=== PATIENT | male | born 1965 | race Caucasian/White ===

== ENCOUNTER 2016-12-26 10:57 | Emergency (ER) | payer OTHER ==
[2016-12-26 11:00] VITALS: BP 131/87; PULSE 56; RESP 16; TEMP 98.1; O2SAT 97
[2016-12-26] MEDS ORDERED: FLUORESCEIN SODIUM 1 MG STRIP OP ONE (11:20)
[2016-12-26] MEDS ORDERED: PROPARACAINE 0.5% 15 ML OPHT DROP ONE (11:20)
--- NOTE | 2016-12-26 11:32 | EDPHY ---
H & P Stated Complaint: R eye irritated;wants it checked before going out of town Time Seen by Provider: 12/26/16 11:32 - Personal History Current Tetanus Diphtheria and Acellular Pertussis (TDAP): Yes - Medical/Surgical History Other PMH: healthy - Social History Smoking Status: Never smoked Constitutional: Initial Vital Signs Temperature (C) 36.7 C 12/26/16 10:58 Heart Rate 56 L 12/26/16 10:58 Respiratory Rate 16 12/26/16 10:58 Blood Pressure 131/87 H 12/26/16 10:58 O2 Sat (%) 97 12/26/16 10:58 O2 Delivery Mode Room Air Allergies/Adverse Reactions: No Known Allergies Allergy (Unverified 12/26/16 11:01) Home Medications: Medication Instructions Recorded Levothyroxine [Synthroid 100 mcg 100 mcg PO DAILY06 12/26/16 (*)] Naphazoline HCl/Pheniramine 15 ml OP QID #1 drops 12/26/16 [Allergy Eye Drops] Simvastatin [Zocor] 40 mg PO 12/26/16 Medical Decision Making ED Course/Re-evaluation: CHIEF COMPLAINT: Bilateral eye irritation right greater than left HISTORY OF PRESENT ILLNESS: 51-year-old gentleman who is been outdoors a bunch last few days and has had itchy eyes on the right greater than left but both eyes. He wears contacts but is not wearing them today. He denies any discharge or matting of the lids. He denies any pain. Denies any fevers chills. Denies any visual changes. REVIEW OF SYSTEMS: A 10 point review of systems was performed and is negative with the exception of the elements mentioned in the history of present illness. PHYSICAL EXAM: HR, BP, O2 Sat, RR. Temp noted General Appearance: Alert, well hydrated, appropriate, and non-toxic appearing. Visual Acuity: Noted from Nurse's notes. Pupils: PERRLA, EOMI, no nystagmus, no trauma, no injection. Lids: No edema or swelling Skin: No proptosis, no periorbital erythema or swelling, no vesicles Conjunctivae: injected bilaterally right greater than left, nonicteric, no discharge. Cornea: Exam with slit lamp and fluorescein shows normal cornea Anterior chamber: Normal, no hyphema or hypopyon Posterior Chamber: No papilledema or hemorrhages. Past medical history: Noncontributory Past surgical history: Noncontributory Family history: Noncontributory Social history: , employed, does not abuse tobacco drugs or alcohol DIFFERENTIAL DIAGNOSIS: Includes but is not limited to: Viral conjunctivitis , bacterial conjunctivitis, atopic conjunctivitis, corneal abrasion, superficial punctate keratopathy MEDICAL DECISION MAKING: This patient has an atopic conjunctivitis. He is heading out of town which is why came here today to get some drops so that he can go on vacation next week and mountain bike and no abscess. I started him on Naphcon-A with pheneramine. He will follow up with his eye doctor. Departure - Departure Disposition: Home, Routine, Self-Care Clinical Impression: Acute conjunctivitis of both eyes Qualifiers: Acute conjunctivitis type: atopic Qualified Code(s): H10.13 - Acute atopic conjunctivitis, bilateral Condition: Good Instructions: Conjunctivitis (ED) Referrals: Shay Ferrer MD [Primary Care Provider] - As per Instructions Prescriptions: Naphazoline HCl/Pheniramine [Allergy Eye Drops] 15 ml OP QID #1 drops
== END 2016-12-26 11:50 | disposition home or self-care (01) ==
DX: H10.13 Acute atopic conjunctivitis, bilateral (principal)